=== PATIENT | male | born 1975 | race Asian ===

== ENCOUNTER 2021-05-29 08:20 | Emergency (ER) | payer OTHER ==
[2021-05-29 08:45] VITALS: BP 131/92; PULSE 70; TEMP 99.4; BMI 27.1
[2021-05-29] MEDS ORDERED: IBUPROFEN 600 MG TABLET (FP) PO ONE ×2 (09:00→09:05)
== END 2021-05-29 11:58 | disposition home or self-care (01) ==
LOC: FER 08:20
DX: R51.9 Headache, unspecified (principal)
CPT/HCPCS: 36415; 70450-TC; 82550; 86618; 99284-25